=== PATIENT | male | born 1985 | race Two or more races ===

== ENCOUNTER 2025-03-06 08:00 | Emergency (ER) | payer MEDICAID, OTHER ==
[~2025-03-06] VITALS: Ht 162.6 cm; Wt 94.3 kg
[~2025-03-06 08:00] MED LIST: DICY10CA55 PO; ONDA-144 PO; Pantoprazole Sodium Sesquihydr PO; RANI15SY PO; SUCR1SUS26 PO; TRAM-297 PO
--- NOTE | 2025-03-06 08:45 | ED.PDOC ---
General HPI Comments This is a 39 year old male presenting to the ED with chief complaint of flank pain. Patient reports that he has been experiencing left sided flank pain with associated nausea, vomiting, difficulty urinating, hematuria, and dysuria since earlier this morning. Patient denies any abdominal pain, diarrhea, fever, chills, or any other symptom at this time. Chief Complaint: Flank Pain Time Seen by MD: 08:41 Primary Care Provider: NONE Reviewed notes: Nurses Notes, Medications, Allergies Allergies: Coded Allergies: Butorphanol (Verified Allergy, Severe, 12/21/14) Ketorolac Tromethamine (Unverified Allergy, Unknown, 02/11/14) Metoclopramide (Unverified Allergy, Unknown, 02/11/14) Promethazine (Unverified Allergy, Unknown, 02/11/14) Home Meds Active Scripts Ondansetron (Zofran) 4 Mg Tab, 1 TAB PO Q6HR, #15 TAB Prov:VISHAL SMALL MD 02/15/16 Sucralfate (CARAFATE SUSP) 1 Gm/10 Ml Ss, 1 GM PO QIDACHS for 30 Days Prov:VISHAL SMALL MD 02/12/16 [Pantoprazole Sodium Sesquihydr] 40 MG TB No Conflict Check, 40 MG PO BID, #60 Prov:GUILHERME REID MD 11/19/15 Reported Medications Dicyclomine Hcl (Bentyl) 10 Mg Cap, 50 MG PO TID, CAP 02/11/16 Ranitidine Hcl (Zantac) 15 Mg/Ml Syp, 1 ML PO BID, #60 ML 2 Refills 02/11/16 Tramadol Hcl (Ultram) 50 Mg Tab, 50 MG PO BID PRN for MILD PAIN OR TEMP>100.4 02/11/16 Ondansetron (Zofran) 4 Mg Tab, 1 TAB PO Q6HR PRN for NAUSEA / VOMITING, #20 TAB 02/28/15 Information Source: Patient Mode of Arrival: Ambulatory Severity: Severe Inability to void: Moderate Timing: Hours Duration: Since onset Prehospital treatment: None Onset: Spontaneous Symptoms: Dysuria, Hematuria, Inability to void History of: Kidney stone Location: (L)Flank Penile discharge: None Modifying factors: None Past Medical History PAST MEDICAL HISTORY: GERD, High Lipids, Kidney Stones, PUD Surgical History: Appendectomy, Cholecystectomy, Hernia Repair Surgical History (Other): Lithotripsy Family History Family History: Reviewed,noncontributory to illness, No family hx ofKidney matti Social History Smoker: Non-Smoker Alcohol: Denies ETOH Use Drugs: Denies Drug Use Lives In: Home Constitutional: denies: chills, diaphoresis, fatigue, fever, malaise, sweats, weakness, others EENTM: denies: blurred vision, double vision, ear bleeding, ear discharge, ear drainage, ear pain, ear ringing, eye pain, eye redness, hearing loss, mouth pain, mouth swelling, nasal discharge, nose bleeding, nose congestion, nose pain, photophobia, tearing, throat pain, throat swelling, voice changes, others Respiratory: denies: cough, hemoptysis, orthopnea, SOB at rest, shortness of breath, SOB with excertion, stridor, wheezing, others Cardiovascular: denies: chest pain, dizzy spells, diaphoresis, Dyspnea on exertion, edema, irregular heart beat, left arm pain, lightheadedness, palpitations, PND, syncope, others Gastrointestinal: reports: nausea, vomiting; denies: abdomen distended, abdominal pain, blood streaked bowels, constipated, diarrhea, dysphagia, difficulty swallowing, hematemesis, melena, poor appetite, poor fluid intake, rectal bleeding, rectal pain, others Genitourinary: reports: dysuria, flank pain, hematuria; denies: burning, frequency, incontinence, penile discharge, penile sore, pain, testicle pain, testicle swelling, urgency, others Neurological: denies: dizziness, fainting, headache, left sided numbness, left sided weakness, numbness, paresthesia, pre-existing deficit, right sided numbness, right sided weakness, seizure, speech problems, tingling, tremors, weakness, others Musculoskeletal: denies: back pain, gout, joint pain, joint swelling, muscle pain, muscle stiffness, neck pain, others Integumetry: denies: bruises, change in color, change in hair/nails, dryness, laceration, lesions, lumps, rash, wounds, others Allergic/Immunocompromised: denies: Difficulty Healing, Frequent Infections, Hives, Itching, others Hematologic/Lymphatic: denies: anemia, blood clots, easy bleeding, easy bruising, swollen glands, others Endocrine: denies: excessive hunger, excessive sweating, excessive thirst, excessive urination, flushing, intolerance to cold, intolerance to heat, unexplained weight gain, unexplained weight loss, others Psychiatric: denies: anxiety, bipolar disorder, depression, hopeless, panic disorder, schizophrenia, sleepless, suicidal, others All Other Systems: Reviewed and Negative Physical Exam General Appearance: Moderate Distress, Normal HEENT: Normal ENT Inspection, Pharynx Normal, TMs Normal Neck: Full Range of Motion, Non-Tender, Normal, Normal Inspection Respiratory: Chest Non-Tender, Lungs Clear, No Accessory Muscle Use, No Respiratory Distress, Normal Breath Sounds Cardiovascular: No Edema, No JVD, No Murmur, No Gallop, Normal Peripheral Pulses, Regular Rate/Rhythm Breast Exam: Deferred Gastrointestinal: No Organomegaly, Non Tender, No Pulsatile Mass, Normal Bowel Sounds, Soft Genitalia: Deferred Pelvic: Deferred Rectal: Deferred Extremities: No calf tenderness, Normal capillary refill, Normal inspection, Normal range of motion, Non-tender, No pedal edema Musculoskeletal : Apperance: Normal Neurologic: Alert, wellness nurse rn II-XII nml as Tested, No Motor Deficits, Normal Affect, Normal Mood, No Sensory Deficits Cerebellar Function: Normal Reflexes: Normal Skin: Dry, Normal Color, Warm Peripheral Pulses: 3+ Radial (R), 3+ Radial (L) Lymphatic: No Adenopathy Was a procedure done? Was a procedure done?: No Differential Diagnosis Kidney stone (Female): Musculoskeletal pain, Urinary obstruction, Urolithiasis Kidney stone (Male): Pyelonephritis, Renal failure, Urinary obstruction, Urol ithiasis, Urinary tract infection X-Ray, Labs, Meds, VS Vital Signs Date Time Temp Pulse Resp B/P (MAP) Pulse Ox O2 Delivery O2 Flow Rate FiO2 03/06/25 09:03 76 33 98 Room Air* 0 21 03/06/25 08:40 97.0 76 33 149/98 (115) 96 97.0 03/06/25 08:29 97.6 83 22 142/106 (118) 95 97.6 Current Medications Medications (Trade) Dose Ordered Sig/Radha Route Start Time Stop Time Status Last Admin Ondansetron HCl (Zofran) 4 mg ONCE ONCE IV 03/06/25 08:45 03/06/25 08:46 DC 7/25/25 08:54 Sodium Chloride 1,000 ml @ 1,000 mls/hr Q1H ONCE IVB 03/06/25 08:45 03/06/25 09:44 03/06/25 08:57 Patient alert. Complaining of abdominal pain. Possible kidney stone. Vitals stable. Establish intravenous access. Was given fluids. Was given Zofran. Was given pain medication. Explained to the patient. Continue monitoring. Time of 1ST Reevaluation: 09:41 Reevaluation 1ST: Unchanged Patient Education/Counseling: Diagnosis, Treatment Family Education/Counseling: No Family Present Additional Information Previous visits reviewed: 02/11/16 for upper GI bleed The following tests were ordered, and results were reviewed by me: CBC, BMP, UA, CT Abd/Pel Additional Information was gathered from interviewing the following independent historians: None I reviewed and agreed with the following test results read by other providers: CT Abd/Pel I discussed treatment and results with medical personnel and: patient Comprehensive systems review obtained and negative except for what is stated in the HPI. SEPSIS Sepsis Screen Date sepsis recognized/suspect: Mar 06, 2025 Time Sepsis recognized/suspect: 803 Recent Procedure: No On Antibiotic Therapy: No Respiratory Rate >20: No Heart Rate >90: No Temp<36 C (96.8 F) or >38.3 C: No SBP <90 or MAP <65 mmHG: No New Acute Mental Status Change: No Is the patient on CPAP, BIPAP,: No Physician Orders Complete Blood Count (03/06/25 08:41) Urinalysis (03/06/25 08:41) Sodium Chloride 0.9% (03/06/25 08:45) Basic Metabolic Panel (03/06/25 08:41) Sodium Chloride 0.9% (03/06/25 08:45) Morphine Sulfate Injection (03/06/25 09:00) Hydromorphone Injection (Dilaudid Inject (03/06/25 09:00) Ct Ab Pel Wo Con-No Oral Or Iv (03/06/25 09:10) Vital Signs Date Time Temp Pulse Resp B/P (MAP) Pulse Ox O2 Delivery O2 Flow Rate FiO2 03/06/25 09:03 76 33 98 Room Air* 0 21 03/06/25 08:40 97.0 76 33 149/98 (115) 96 97.0 03/06/25 08:29 97.6 83 22 142/106 (118) 95 97.6 Medications Medications Dose Ordered Sig/Radha Route Start Time Stop Time Status Last Admin Dose Admin Ondansetron HCl 4 mg ONCE ONCE IV 03/06/25 08:45 03/06/25 08:46 DC 03/06/25 08:54 Sodium Chloride 1,000 ml @ 1,000 mls/hr Q1H ONCE IVB 03/06/25 08:45 03/06/25 09:44 03/06/25 08:57 Departure 1 Departure Time of Disposition: 09:09 Impression: Primary Impression: Intractable abdominal pain Additional Impression: Kidney stone Disposition: ADMITTED INPATIENT Admit to: Med Surg Condition: Guarded Critical Care Note Critical Care Time?: Yes (90 min-critical care time only) Critical care comment: Continues to have abdominal pain. Stability Stability form required: No Heart Score Heart Score: Heart Score Response (Comments) Value History N/A 0 EKG N/A 0 Age N/A 0 Risk Factors N/A 0 Troponin N/A 0 Total 0 I personally scribed for JULISSA MYERS MD ([email or web address]) on 03/06/25 at 08:45. Electronically submitted by Dominick Vogt ([email or web address]). I personally scribed for JULISSA MYERS MD ([email or web address]) on 03/06/25 at 09:08. Electronically submitted by Dominick Vogt ([email or web address]). I personally scribed for JULISSA MYERS MD ([email or web address]) on 03/06/25 at 09:16. Electronically submitted by Dominick Vogt ([email or web address]). JULISSA MYERS MD Mar 06, 2025 08:45
[2025-03-06] MEDS: ONDANSETRON HCL 4 MG/2 ML VIAL IV ONE ×2 (08:54→13:32)
[2025-03-06] MEDS: SODIUM CHLORIDE 0.9% 1,000 ML IVB ONE (08:57)
[2025-03-06] MEDS: KETOROLAC TROMETH 30 MG/ML 1ML VIAL IV ONE (08:57)
[2025-03-06] MEDS ORDERED: HYDROmorphone HCL 2 MG/ML VL/or syr IV ONE (09:00)
[2025-03-06 09:03] VITALS: PULSE 76; RESP 33; O2SAT 98
[2025-03-06] MEDS: MORPHINE SULFATE 4 MG/ML SYR/VIAL IV ONE (09:33)
[2025-03-06] MEDS: SODIUM CHLORIDE 0.9% 1,000 ML IV ONE (09:38)
[2025-03-06 09:50] LABS: Hematocrit 48.2 % (41.0-53.0); Hemoglobin 17.5 g/dL (13.5-17.5); Mean Corpuscular Hemoglobin 32.2 pg (28.0-32.0); Mean Corpuscular Volume 88.6 fL (80.0-100.0); Nucleated Red Blood Cells % 0.1 %
[2025-03-06 09:53] LABS: Chloride 106 mmol/L (98-107); Potassium 3.8 mmol/L (3.5-5.1); Sodium 140 mmol/L (136-145)
[2025-03-06 09:54] LABS: Anion Gap 10 (5-15); Carbon Dioxide 24 mmol/L (20-31)
[2025-03-06 09:55] LABS: Calcium 10.2 mg/dL (8.7-10.4)
[2025-03-06 10:00] LABS: BUN/Creatinine Ratio 9.9 (10.0-20.0); Blood Urea Nitrogen 12 mg/dL (9-23)
--- NOTE | 2025-03-06 10:02 | DVH ---
CT CT AB PEL WO CON-NO ORAL OR IV INDICATION: stone EXAM DATE: 03/06/2025 09:14 AM COMPARISON: None RADIATION DOSE: CTDIvol: 17 mGy, DLP: 1099 mGy*cm PROCEDURE: Helical CT images were obtained of the abdomen and pelvis without IV contrast Sagittal and coronal reconstructions are provided. ORAL CONTRAST: None. ADDITIONAL IMAGES / REFORMATS: None All C T scans at this medical facility are performed using dose modulation techniques as appropriate to a p erformed exam including the following: Automated exposure control was utilized; adjustment of the MA and/or KV according to patient size; and use of iterative reconstruction technique. FINDINGS: LUNG BASE: Normal. LIVER: Mild hepatic steatosis. GALLBLADDER AND BILIARY TREE: Karey clips are seen. No intra- or extrahepatic biliary ductal dilation . PANCREAS: Normal. SPLEEN: Normal. BOWEL: Normal. ADRENALS: Normal. KIDNEYS AND URETER: 4 mm proximal left kidney stone with mild left hydronephrosis. 3 mm proximal righ t kidney stone without hydronephrosis seen. Additional punctate nonobstructive right kidney stones ar e seen. BLADDER: Normal. REPRODUCTIVE ORGANS: Normal. LYMPH NODES:No lymphadenopathy. PERITONEUM: No ascites or free air. No other fluid collection. VESSELS: Scattered atherosclerotic calcifications are noted. RETROPERITONEUM: Normal. ABDOMINAL WALL: Small fat containing left inguinal hernia. BONES: Scattered osseous degenerative changes are noted. IMPRESSION: 4 mm proximal left kidney stone with mild left hydronephrosis. 3 mm proximal right kidney stone witho ut hydronephrosis seen. Additional punctate nonobstructive right kidney stones are seen.
[2025-03-06 10:03] LABS: Glucose 149 mg/dL (74-106)
[2025-03-06] MEDS: HYDROmorphone HCL 2 MG/ML VL/or syr IV ONE (10:56)
--- NOTE | 2025-03-06 11:37 | DVH ---
Indication: LEFT TESTICLE PAIN Technique: Real-time ultrasound images through the scrotum. Comparison: None Findings: Right testicle measures 3.7 x 2 x 3 cm. It has normal echogenicity and echotexture, with no focal so lid or cystic mass. There is normal flow on color Doppler, with normal waveforms. The right epididyma l head nonvisualized. Left testicle measures 0.9 x 1.8 x 2. cm. It has normal echogenicity and echotexture, with no focal solid or cystic mass. There is normal flow on color Doppler, with normal waveforms. The left epididym al head measures cm, and has no focal masses. There is no hydrocele . Possible left varicocele measuring 3 mm Impression: No evidence for testicular torsion. Right epididymis nonvisualized. Possible left varicocele measuring up to 3 mm in diameter.
[2025-03-06] MEDS: cefTRIAXone 1GM/50ML D5W 50 ML IV ONE (12:41)
[2025-03-06 12:52] LABS: Urine Protein, UAD Negative (Negative)
[2025-03-06] MEDS: MORPHINE SULFATE INJ 2 MG/ml SYRG IV ONE (13:32)
[2025-03-06 13:47] VITALS: BP 135/84; PULSE 98; RESP 23; TEMP 97.8; O2SAT 98
== END 2025-03-06 13:55 | disposition short-term general hospital (02) ==
LOC: ER 08:02
DX: N20.0 Calculus of kidney (principal); R10.84 Generalized abdominal pain; Z98.890 Other specified postprocedural states; Z90.49 Acquired absence of other specified parts of digestive tract
CPT/HCPCS: 36415; 74176; 76870; 80048; 81001; 85025; 96361; 96365; 96375; 96376; 99285; J0696; J1171; J2270; J2405; J7030